=== PATIENT | female | born 1960 | race Caucasian/White ===

== ENCOUNTER 2024-05-20 03:05 | Day surgery (SDC) | payer OTHER ==
[2024-05-20] VITALS (215 sets, daily range): BP systolic 100–212; BP diastolic 42–144
[~2024-05-20] VITALS: Ht 165.1 cm; Wt 65.0 kg
[2024-05-20] MEDS ORDERED: FAMOTIDINE 20 MG/TAB PO PRN (07:30)
[2024-05-20] MEDS ORDERED: cloNIDine HCL 0.1 MG/TAB PO PRN (07:30)
[2024-05-20] MEDS ORDERED: LACTATED RINGER'S 1,000 ML IV PRN ×3 (07:30→19:00)
[2024-05-20] MEDS ORDERED: diazePAM 5 MG/TAB PO PRN ×2 (07:30→08:30)
[2024-05-20] MEDS ORDERED: PANTOPRAZOLE SODIUM Sesquihydr 40 MG/TAB PO PRN (07:30)
[2024-05-20] MEDS ORDERED: ALBUTEROL SULFATE 2.5 MG VIAL IN PRN (07:30)
[2024-05-20] MEDS ORDERED: CYANOCOBALAMIN 500 MCG/TAB ( B12) PO PRN (07:30)
[2024-05-20] MEDS ORDERED: SCOPOLAMINE 1.5 MG DIS TD PRN (07:30)
[2024-05-20] MEDS ORDERED: ASCORBIC ACID 4,000 MG in SODIUM CHLORIDE 0.9% 1,000 ML IV SCH (08:00)
[2024-05-20] MEDS ORDERED: AMLODIPINE BESYL5 MG PO (08:18)
[2024-05-20 08:21] LABS: BASO% 0.3 % (0-3); EOS% 0.7 % (0-8); HEMATOCRIT 45.1 % (37.0-47.0); HEMOGLOBIN 14.1 g/dl (12.0-16.0); IMMATURE GRANULOCYTES 0.1 % (0.0-5.0); LYMPH% 33.3 % (15-41); MEAN CORPUSCULAR HGB 30.7 pG CALC (26.0-32.0); MEAN CORPUSCULAR HGB CONC 31.3 g/dL CAL (32.0-36.0); MONO% 5.7 % (2-13); NEUT# 5.27 thou/uL (2.00-7.15); NEUT% 59.9 % (42-76); RED BLOOD COUNT 4.6 mill/uL (4.20-5.60); RED CELL DISTRI WIDTH 13.3 % (11.5-15.5)
[2024-05-20] MEDS ORDERED: CRESTOR10 MG PO (08:23)
[2024-05-20] MEDS ORDERED: NEURONTIN600 MG PO (08:24)
[2024-05-20 08:35] LABS: ALBUMIN 4.3 g/dL (3.2-5.0); BILIRUBIN, TOTAL 0.5 mg/dL (0.02-1.3); CREATININE 0.8 mg/dL (0.5-1.0); POTASSIUM 4.3 mmol/l (3.5-5.1); TOTAL PROTEIN 7.2 g/dL (6.3-8.2)
[2024-05-20] MEDS ORDERED: cloNIDine HYDROCHLORIDE 100 MCG/ML 10 ML INJ IV PRN (08:35)
[2024-05-20] MEDS ORDERED: PROPOFOL 10 MG/ML 100ML VIAL IV PRN (08:35)
[2024-05-20] MEDS ORDERED: ROCURONIUM BROMIDE 10 MG/ML 5ML VIAL IV PRN (08:35)
[2024-05-20] MEDS ORDERED: cloNIDine HCL 0.1 MG/TAB VT PRN (08:35)
[2024-05-20] MEDS ORDERED: LIDOCAINE HCL 1% (10MG/ML) 100 MG/10 ML MDV VT PRN ×2 (08:35)
[2024-05-20] MEDS ORDERED: diazePAM 5 MG/TAB VT PRN (08:35)
[2024-05-20] MEDS ORDERED: OCTREOTIDE ACETATE 100 MCG/VIAL SDV SC PRN (08:35)
[2024-05-20] MEDS ORDERED: MIDAZOLAM HCL 2 MG/2 ML VIAL IV PRN (08:35)
[2024-05-20] MEDS ORDERED: PROPOFOL 100 ML IV PRN (08:35)
[2024-05-20] MEDS ORDERED: MAGNESIUM SULFATE HEPTAHYDRATE 100 ML IV PRN (08:35)
[2024-05-20] MEDS ORDERED: NALTREXONE HCL 50 MG/TAB VT PRN (08:35)
[2024-05-20] MEDS ORDERED: ONDANSETRON HCl 4 MG/2 ML SDV IV PRN ×3 (08:35→19:00)
[2024-05-20] MEDS ORDERED: SUCCINYLCHOLINE CHLORIDE 20 MG/ML 10ML VIAL IV PRN (08:35)
[2024-05-20] MEDS ORDERED: DiphenhydrAMINE HCL 50 MG/ML SDV IV PRN (08:35)
[2024-05-20] MEDS ORDERED: STERILE WATER FOR IRRIGATION 1,000 ML BTL IR PRN (08:35)
[2024-05-20] MEDS ORDERED: THIAMINE HCL 100 MG/ML 2ML VIAL IV PRN (08:35)
[2024-05-20] MEDS ORDERED: LIDOCAINE HCL 1% (10MG/ML) 100 MG/10 ML MDV IV PRN (08:35)
[2024-05-20] MEDS ORDERED: POTASSIUM CHLORIDE 20 MEQ/100 ML BAG IV PRN (09:15)
[2024-05-20] MEDS ORDERED: NICOTINE TRANSDERMAL 21 MG/PATCH TD SCH (10:30)
[2024-05-20] MEDS ORDERED: clonazePAM 1 MG/TAB PO PRN (11:10)
[2024-05-20] MEDS ORDERED: hydrALAZINE HCL 20 MG/ML VIAL(1 ML) IV PRN (12:10)
[2024-05-20] MEDS ORDERED: LIDOCAINE HCL 1% (10MG/ML) 100 MG/10 ML MDV IV SCH (12:30)
[2024-05-20] MEDS ORDERED: ACETAMINOPHEN 100 ML IV SCH (12:30)
[2024-05-20] MEDS ORDERED: KETOROLAC TROMETHAMINE 30 MG/ML SDV IV SCH (12:30)
[2024-05-20] MEDS ORDERED: ACETAMINOPHEN 100 ML IV PRN (12:45)
[2024-05-20] MEDS ORDERED: NALTREXONE50 MG PO (16:42)
[2024-05-20] MEDS ORDERED: CLONIDINE0.1 MG PO (16:43)
[2024-05-20] MEDS ORDERED: KLONOPIN2 MG PO (16:43)
[2024-05-20] MEDS ORDERED: HALOPERIDOL LACTATE 5 MG/ML SDV IV PRN ×2 (19:00→22:20)
[2024-05-20] MEDS ORDERED: PROMETHAZINE HCL 25 MG in SODIUM CHLORIDE 0.9% 50 ML IV PRN (19:00)
[2024-05-20] MEDS ORDERED: ACETAMINOPHEN 1,000 MG/100 ML VIAL IV PRN (19:00)
[2024-05-20] MEDS ORDERED: KETOROLAC TROMETHAMINE 30 MG/ML SDV IV PRN (19:00)
[2024-05-20] MEDS ORDERED: PROMETHAZINE HCL 12.5 MG in SODIUM CHLORIDE 0.9% 50 ML IV PRN (19:00)
[2024-05-20] MEDS ORDERED: LORazepam 2 MG/ML IV PRN ×2 (19:00)
[2024-05-20] MEDS ORDERED: ACETAMINOPHEN 500 MG TAB PO PRN (19:00)
[2024-05-20] MEDS ORDERED: PATIENT' OWN MED CONTROLLED 1 EA DOSE IV PRN (21:00)
[2024-05-20] MEDS ORDERED: cloNIDine HCL 0.1 MG/TAB PO SCH (23:00)
[2024-05-21] MEDS ORDERED: clonazePAM 1 MG/TAB PO PRN ×2 (04:00→08:00)
[2024-05-21] MEDS ORDERED: NALTREXONE HCL 50 MG/TAB PO SCH (04:00)
[2024-05-21] MEDS ORDERED: cloNIDine HCL 0.1 MG/TAB PO PRN (04:00)
[2024-05-21 04:11] VITALS: BP 157/80
[2024-05-21 05:44] LABS: BASO% 0.1 % (0-3); IMMATURE GRANULOCYTES 0.3 % (0.0-5.0); LYMPH% 12.8 % (15-41); MEAN CORPUSCULAR HGB 32.6 pG CALC (26.0-32.0); MEAN CORPUSCULAR HGB CONC 32.6 g/dL CAL (32.0-36.0); NEUT# 9.38 thou/uL (2.00-7.15); NEUT% 81.8 % (42-76); RED BLOOD COUNT 4.3 mill/uL (4.20-5.60); RED CELL DISTRI WIDTH 13.7 % (11.5-15.5)
[2024-05-21 05:48] LABS: ALBUMIN 4.4 g/dL (3.2-5.0); CREATININE 0.9 mg/dL (0.5-1.0); MAGNESIUM 2.3 mg/dL (1.6-2.3); POTASSIUM 4.5 mmol/l (3.5-5.1); TOTAL PROTEIN 7.2 g/dL (6.3-8.2)
[2024-05-21 05:54] LABS: BILIRUBIN, TOTAL 0.9 mg/dL (0.02-1.3)
[2024-05-21 07:45] VITALS: BP 177/80
[2024-05-21] MEDS ORDERED: cloNIDine HCL 0.1 MG/TAB PO SCH (08:00)
[2024-05-21] MEDS ORDERED: PANTOPRAZOLE SODIUM Sesquihydr 40 MG/TAB PO SCH (08:00)
[2024-05-21] MEDS ORDERED: ACETAMINOPHEN 325 MG/TAB PO SCH (08:00)
[2024-05-21 08:17] VITALS: BP 177/80
[2024-05-21] MEDS ORDERED: MAGNESIUM OXIDE 400 MG/TAB PO PRN (09:00)
[2024-05-21] MEDS ORDERED: ACETAMINOPHEN 500 MG TAB PO PRN (09:00)
[2024-05-21] MEDS ORDERED: Cholecalciferol 2,000 UNIT/TAB PO PRN (09:00)
== END 2024-05-21 14:19 | disposition home or self-care (01) | DRG 897 ==
LOC: MS2 03:05 → ANR 03:05
PROVIDERS: ATTEND Anesthesiology Critical Care Medicine
DX: F11.20 Opioid dependence, uncomplicated (principal)
CPT/HCPCS: J0131; J0360; J1100; J1200; J1630; J2354; J2405; J2704; J3475; J3480; J3490